=== PATIENT | female | born 1995 | race Caucasian/White ===

== ENCOUNTER → 2017-02-19 | Outpatient (CLI) | payer OTHER ==
[~2017-02-19] MED LIST: AUGMENTIN 875-1 EACH PO; MOTRIN-DPS800 MG PO; PRENATAL VIT1 TAB PO
== END | disposition home or self-care (01) ==
LOC: RAD.S 12:57
DX: Z36 Encounter for antenatal screening of mother (principal); Z3A.28 28 weeks gestation of pregnancy

== ENCOUNTER → 2017-04-16 | Outpatient (CLI) | payer OTHER, MEDICAID | END | disposition home or self-care (01) | LOC: RAD.S 16:19 | DX: Z36 Encounter for antenatal screening of mother (principal); Z3A.36 36 weeks gestation of pregnancy ==

== ENCOUNTER 2017-04-20 06:41 | Inpatient (IN) | payer OTHER, MEDICAID ==
[~2017-04-20] VITALS: Ht 177.8 cm; Wt 135.2 kg
--- NOTE | 2017-04-21 17:18 | OR ---
ADMIT: 04/20/2017 RM/LOC: 225 [facility] MR#: [id number] [address] [facility] [address] [place], [place] [address] DENNIS MITCHELL [address] [place], [place] [id number] Operative/Delivery Room Report SEX: F AGE: 21 : 1995 SURGERY DATE: 04/20/2017 SURGEON: Alysia Simon MD PROCEDURE: Normal spontaneous vaginal delivery. FINDINGS: Female , delivered in CALVIN position at 1344 hours with a weight 6 pounds 5 ounces. Intact placenta with three-vessel cord. Meconium stained fluid with foul odor, likely chorioamnionitis. Left vulvar tear repaired with 3-0 Vicryl. REASON FOR ADMISSION: The patient is a 21-year-old, 1 female, who presented at 36 weeks and 5 days with abdominal cramping. Had some cervical change noted through the morning, so admitted for labor. DESCRIPTION OF PROCEDURE: The patient was admitted. Was 3 to 4 cm dilated at 1230 hours on 04/20 when I checked and rapidly progressed to complete and +2, and I was called in for delivery at about 1330 hours. Baby delivered after three pushes in CALVIN position. No nuchal cords were noted. On delivery, the patient was stimulated and cried spontaneously. Was placed on mother's abdomen. At a minute of age, the cord was clamped and cut. Cord blood was obtained. The placenta delivered intact with a 3-vessel cord spontaneously. Cervix, vagina, and perineum were explored, and she has small left vulvar tear that was repaired with 3-0 Vicryl and some local lidocaine for anesthesia. Also, had a right vulvar abrasion but was not bleeding by the end of procedure, so it was left unrepaired. No perineal tears. The uterus was clamped down well at the end of the procedure, and she had minimal bleeding. Alysia Simon MD/ antonietta JOB #: [id number] CC: Alysia Simon, Attending Physician Alysia Simon, Family Physician
--- NOTE | 2017-04-21 17:18 | HP ---
ADMIT: 04/20/2017 RM/LOC: 225 [facility] MR#: [id number] 26[address] [facility] [address] [place] [id number] DENNIS MITCHELL [address] [place], [place] [id number] History and Physical SEX: F AGE: 21 : 1995 DATE OF SERVICE: CHIEF COMPLAINT: Cramping. HISTORY OF PRESENT ILLNESS: The patient is a 21-year-old, 1 female, who presented at 36 weeks 5 days and with cramping mainly in the low abdomen that radiates through to her back. She had some nausea and vomiting. No fever, and when she first arrived was just 1.5 cm dilated, so kept for monitoring, but her urine did come back looking infected. She has had a normal course with early in regular care. Did receive an Adacel and a RhoGAM shot for Rh-negative status. She is blood type O negative. Rubella immune. Gonorrhea was negative. Chlamydia was positive, but she was treated and had a negative test for cure in the 3rd trimester. One-hour glucose was 94. She has had no anemia. PAST MEDICAL HISTORY: The patient has had no chronic medical issues or hospitalizations, but has had surgeries for tonsillectomy and wisdom teeth in 2014. MEDICATIONS: vitamin daily. ALLERGIES: NO KNOWN DRUG ALLERGIES. FAMILY HISTORY: Significant for father with asthma and mother with hypertension. Paternal grandmother had cancer. SOCIAL HISTORY: The patient is single, but the father of the baby is involved. No tobacco, alcohol, or drug use. PHYSICAL EXAMINATION: VITAL SIGNS: The patient is afebrile. Pulse is 110, blood pressure 137/66. ABDOMEN: Gravid with an estimated weight of 6.5 pounds. Baby feels vertex by Jt's on recent ultrasound. Cervix is 3.5 cm dilated, 90% effaced, and -2 station, which is a significant change from earlier this morning. She is mayela when we can get a monitor on right, but it is hard to pickle pumper. LABORATORY DATA: UA showed 1+ protein, 4+ ketones, 3+ blood, 3+ leukocyte esterase with 158 white blood cells per high-powered field. Culture is being ADMIT: 04/20/2017 RM/LOC: 225 [facility] MR#: [id number] [address] [id number] PAULA DENNIS [address] [place] [address] History and Physical SEX: F AGE: 21 : 1995 done. ASSESSMENT: 1. Intrauterine at 36 weeks 5 days. 2. labor. 3. Urinary tract infection. 4. Rh negative. 5. Obesity. PLAN: We will admit for labor. We will give a dose of Celestone now and just continue to monitor expectantly. We will continue Rocephin, she has already received one dose. Alysia Simon MD/ antonietta JOB #: [id number] CC: Alysia Simon, Attending Physician Alysia Simon, Family Physician
[2017-04-23] MEDS ORDERED: PRENATAL VIT1 TAB PO (19:23)
[2017-04-23] MEDS ORDERED: MOTRIN-DPS800 MG PO (19:24)
[2017-04-23] MEDS ORDERED: AUGMENTIN 875-1 EACH PO (19:24)
--- NOTE | 2017-05-03 08:10 | DS ---
ADMIT: 04/20/2017 RM/LOC: 225 [facility] MR#: [id number] [address] [facility] [address] [place] [id number] DENNIS MITCHELL [address] [place] [address] General Discharge Summary SEX: F AGE: 21 : 1995 ADMISSION DATE: 04/20/2017 DISCHARGE DATE: 04/23/2017 FINAL DIAGNOSES: 1. Status post spontaneous vaginal delivery. Late of a female at 1344 hours with a weight of 6 pounds 5 ounces. 2. Chorioamnionitis. 3. Left vulvar tear. REASON FOR ADMISSION: Please refer to dictated H and P. Briefly, the patient of Dr. Simon's, came in in active labor and was admitted for further management. HOSPITAL COURSE: The patient underwent delivery on 04/20. She had rapidly progressed, delivered in the CALVIN position. Obvious chorioamnionitis upon delivery. She had labile tear that was repaired by Dr. Simon. There were no other major complications with delivery. She did receive multiple days of IV antibiotics and was then subsequently switched to Augmentin. On day of discharge, she was feeling much improved. No complaints. No foul vaginal odor. No significant uterine tenderness. No other major events during hospitalization. DISCHARGE MEDICATIONS: Please refer to hospital record. DISCHARGE INSTRUCTIONS: The patient was instructed on routine precautions in education. Routine instructions on care for her were given. Recommended if she had worsening signs and symptoms of infection, to contact her primary care provider. Otherwise, follow up in 5-6 weeks check. Discharge activities took approximately 35 minutes. Stiven Holley MD/ antonietta JOB #: [id number] CC: Alysia Simon MD, Attending Physician Alysia Simon MD, Family Physician
== END 2017-04-23 10:10 | disposition home or self-care (01) | DRG 774 ==
LOC: BC 06:41 → 2LDRP 06:41 → BC 05-13 08:00
PROVIDERS: ADMIT Family Medicine
PROC: 0UQMXZZ Repair Vulva, External Approach (ICD-10-PCS; principal; 2017-04-20)
PROC: 10E0XZZ Delivery of Products of Conception, External Approach (ICD-10-PCS; principal; 2017-04-20)
DX: O60.14X0 Preterm labor third trimester with preterm delivery third trimester, not applicable or unspecified (principal); O75.3 Other infection during labor; O41.1230 Chorioamnionitis, third trimester, not applicable or unspecified; O77.0 Labor and delivery complicated by meconium in amniotic fluid; O70.0 First degree perineal laceration during delivery; Z3A.36 36 weeks gestation of pregnancy; Z37.0 Single live birth